=== PATIENT | male | born 1980 | race Two or more races ===

== ENCOUNTER 2023-12-20 19:20 | Inpatient (IN) | payer OTHER ==
[~2023-12-20] VITALS: Ht 172.7 cm; Wt 95.4 kg
[2023-12-20] VITALS (14 sets, daily range): BP systolic 154–175; BP diastolic 91–115; PULSE 59–92; RESP 12–24; TEMP 97.7–97.9; O2SAT 96–100
[2023-12-20] MEDS: ONDANSETRON HCL 4 MG/2 ML VIAL IV ONE (19:37)
[2023-12-20] MEDS: HEPARIN SODIUM (PORCINE) 5000 UNITS/ML 1ML VIAL IV ONE (19:37)
[2023-12-20] MEDS: MORPHINE SULFATE 4 MG/ML SYR/VIAL IV ONE (19:38)
[2023-12-20 19:48] LABS: Basophils # (auto) 0.1 10 ^3/uL (0-0.2); Basophils % (auto) 0.8 % (0.0-2.0); Eosinophils # (auto) 0.3 10 ^3/uL (0-0.8); Eosinophils % (auto) 2.6 % (0.0-7.0); Hematocrit 44.9 % (41.0-53.0); Hemoglobin 15.3 g/dL (13.5-17.5); Lymphocytes # (auto) 3.8 10 ^3/uL (0.4-5.4); Mean Corpuscular Hemoglobin 30.5 pg (28.0-32.0); Mean Corpuscular Hgb Conc. 34.1 g/dL (32.0-36.0); Mean Corpuscular Volume 89.5 fL (80.0-100.0); Monocytes # (auto) 1.4 10 ^3/uL (0-1.3); Monocytes % (auto) 11.8 % (0.0-12.0); Neutrophils # (auto) 6.3 10 ^3/uL (1.6-8.6); Neutrophils % (auto) 52.8 % (37.0-80.0); Nucleated Red Blood Cells % 0.1 %; Red Blood Cells 5.01 10^6/uL (4.5-5.90); Red Cell Distribution Width 14.2 % (11.8-14.3)
[2023-12-20] MEDS: HEPARIN IN NS 1000Units/500mL 1,500 ML ONE (19:48)
[2023-12-20 19:52] LABS: Chloride 105 mmol/L (98-107); Potassium 4.1 mmol/L (3.5-5.1); Sodium 138 mmol/L (136-145)
[2023-12-20] MEDS: LIDOCAINE 2%HCL (LOCAL ANESTH.) INJ 20ML MDV ONE (19:52)
[2023-12-20] MEDS: MIDAZOLAM HCL 2MG/2ML 2ml VIAL (1mg/ml) ONE (19:52)
[2023-12-20] MEDS: fentaNYL CITRATE 100 MCG/2 ML VL ONE (19:52)
[2023-12-20] MEDS: VERAPAMIL 2.5MG/ML INJ 2ML VIAL IV ONE (19:52)
[2023-12-20] MEDS: SODIUM CHL 0.9% 50 ML ONE (19:52)
[2023-12-20] MEDS: ANGIOMAX 250 MG VIAL IV ONE (19:52)
[2023-12-20 19:53] LABS: Anion Gap 9 (5-15); Calcium 9.8 mg/dL (8.7-10.4); Carbon Dioxide 24 mmol/L (20-30)
[2023-12-20 19:58] LABS: BUN/Creatinine Ratio 20.4 (10.0-20.0); Blood Urea Nitrogen 20 mg/dL (9-23); Glucose 146 mg/dL (74-106)
[2023-12-20 19:59] LABS: INR 0.97 (0.9-1.15); Partial Thromboplastin Time 22.2 SEC (24.5-34.5); Prothrombin Time 10.3 sec (9.3-11.8)
[2023-12-20] MEDS ORDERED: NITROGLYCERIN 0.4 MG SL TAB SL PRN ×2 (20:00→21:00)
[2023-12-20] MEDS: ASPirin-EC 325mg tab PO ONE (20:00)
[2023-12-20] MEDS ORDERED: MORPHINE SULFATE INJ 2 MG/ml SYRG IV PRN ×3 (20:00→21:00)
[2023-12-20] MEDS ORDERED: CLOPIDOGREL BISULFATE 75 MG TAB PO ONE (20:00)
[2023-12-20] MEDS ORDERED: ONDANSETRON HCL 4 MG/2 ML VIAL IV PRN (20:00)
[2023-12-20] MEDS: ATROPINE SULF 1 MG/10ml SYR ONE (20:12)
[2023-12-20] MEDS ORDERED: HEPARIN DRIP/D5W 100UNITS/ML 250 ML IV SCH (20:30)
[2023-12-20] MEDS: IODIXANOL 320MG/ML 100ML BTL IV ONE (20:51)
[2023-12-20] MEDS: LIDOCAINE HCL 100 MG/5ML (2%) SYRG INJ IV ONE (20:51)
[2023-12-20] MEDS: TICAGRELOR 90 MG TAB ONE (20:51)
[2023-12-20] MEDS: ATORVASTATIN 20 MG TAB PO SCH (23:33)
[2023-12-20] MEDS: ENALAPRIL MALEATE 2.5 MG TAB PO SCH (23:33)
[2023-12-20] MEDS: SODIUM CHLOR 0.9% PF (SALINE LOCK) 10ML VIAL/SYR IV SCH (23:36)
[2023-12-21] VITALS (24 sets, daily range): BP systolic 115–168; BP diastolic 68–103; PULSE 56–103; RESP 10–27; TEMP 97.4–98.5; O2SAT 95–100
[2023-12-21] MEDS: hydrALAZINE HCL 20 MG/ML VL IV PRN (01:51)
[2023-12-21 05:07] LABS: Basophils # (auto) 0.1 10 ^3/uL (0-0.2); Basophils % (auto) 0.4 % (0.0-2.0); Eosinophils # (auto) 0.1 10 ^3/uL (0-0.8); Eosinophils % (auto) 0.5 % (0.0-7.0); Hematocrit 44.7 % (41.0-53.0); Hemoglobin 15.1 g/dL (13.5-17.5); Lymphocytes # (auto) 1.2 10 ^3/uL (0.4-5.4); Lymphocytes % (auto) 9.3 % (10.0-50.0); Mean Corpuscular Hemoglobin 30.1 pg (28.0-32.0); Mean Corpuscular Hgb Conc. 33.8 g/dL (32.0-36.0); Mean Corpuscular Volume 89.1 fL (80.0-100.0); Monocytes % (auto) 7.7 % (0.0-12.0); Neutrophils # (auto) 10.8 10 ^3/uL (1.6-8.6); Neutrophils % (auto) 82.1 % (37.0-80.0); Nucleated Red Blood Cells % 0.1 %; Red Blood Cells 5.02 10^6/uL (4.5-5.90); Red Cell Distribution Width 14.4 % (11.8-14.3); White Blood Cell 13.2 10^3/uL (4.4-10.8)
[2023-12-21 05:22] LABS: Anion Gap 7 (5-15); Carbon Dioxide 24 mmol/L (20-30); Chloride 106 mmol/L (98-107); Potassium 3.8 mmol/L (3.5-5.1); Sodium 137 mmol/L (136-145)
[2023-12-21 05:23] LABS: Calcium 9.2 mg/dL (8.7-10.4)
[2023-12-21 05:28] LABS: BUN/Creatinine Ratio 12.2 (10.0-20.0); Blood Urea Nitrogen 10 mg/dL (9-23); Glucose 132 mg/dL (74-106)
[2023-12-21] MEDS: TICAGRELOR 90 MG TAB PO SCH (06:46)
[2023-12-21] MEDS: ASPirin 81 mg TAB PO SCH (09:33)
[2023-12-21] MEDS ORDERED: CLOPIDOGREL BISULFATE 75 MG TAB PO SCH (10:00)
[2023-12-21] MEDS ORDERED: ASPirin-EC 81 mg tab PO SCH (10:00)
[2023-12-21] MEDS: METOPROLOL SUCCINATE XL 50 MG TAB PO SCH (10:00)
== END 2023-12-21 19:10 | disposition home or self-care (01) | DRG 322 ==
LOC: ER 19:20 → EDBD 19:20 → TELE 19:57 → DOU IN ICU 22:06 → ICU CENTRL 22:07 → TELE-WESTW 12-21 11:53
PROVIDERS: ADMIT Internal Medicine; ATTEND Emergency Medicine
PROC: 027035Z Dilation of Coronary Artery, One Artery with Two Drug-eluting Intraluminal Devices, Percutaneous Approach (ICD-10-PCS; principal; 2023-12-20)
PROC: 3E03317 Introduction of Other Thrombolytic into Peripheral Vein, Percutaneous Approach (ICD-10-PCS; 2023-12-20)
PROC: B211YZZ Fluoroscopy of Multiple Coronary Arteries using Other Contrast (ICD-10-PCS; 2023-12-20)
PROC: 4A023N7 Measurement of Cardiac Sampling and Pressure, Left Heart, Percutaneous Approach (ICD-10-PCS; 2023-12-20)
DX: I21.19 ST elevation (STEMI) myocardial infarction involving other coronary artery of inferior wall (principal); F17.290 Nicotine dependence, other tobacco product, uncomplicated; E66.9 Obesity, unspecified; I10 Essential (primary) hypertension; I25.2 Old myocardial infarction; Z68.32 Body mass index [BMI] 32.0-32.9, adult
CPT/HCPCS: 36415; 71045; 80048; 83735; 84484; 85025; 85610; 85730; 87081; 93005; 93306; 99152; C1874; G0378; J2250; J2405; Q9967